=== PATIENT | male | born 1940 | race Caucasian/White ===

== ENCOUNTER 2017-01-28 07:50 | Inpatient (IN) | payer OTHER ==
[~2017-01-28] VITALS: Ht 182.9 cm; Wt 105.5 kg
[~2017-01-28 07:50] MED LIST: ACCUPRIL20 MG PO; ADULT LOW STREN81 M2 PO; ASPIRIN E.C.81 M1 PO; ASPIRIN81 M2 PO; AZITHROMYCIN500 MG PO; CENTRAL VITE T1 EACH PO; CENTRUM SILVER1 EAC3 PO; CHOLESTYRAMINE P4 GM PO; DICLOFENAC SODI75 MG PO; FENOFIBRATE160 M1 PO; FLEXERIL10 MG PO; FLORASTOR250 MG PO; GABAPENTIN300 MG PO; GARLIC OIL1000 MG PO; GARLIC1000 MG PO; Garlic PO; IRON325 M1 PO; LISINOPRIL20 MG PO; LOPRESSOR12.5 MG PO; LOPRESSOR25 MG PO; Lopid PO; METRONIDAZOLE500 MG PO; MOTRIN400 MG PO; NIASPAN,SLO-NI500 MG PO; OMEGA 3-6-91200 MG PO; PERCOCET 5/31 TABLET PO; PROBIOTIC1 EAC1 PO; Theragran-M,Centrum, PO; Tylenol Regular Stre PO; ZANTAC150 MG PO; Zantac PO
[2017-01-28 12:30] VITALS: BP 147/79
[2017-01-28 19:52] VITALS: BP 131/64
[2017-01-29 00:07] VITALS: BP 128/73
[2017-01-29 04:16] VITALS: BP 127/69
[2017-01-29 05:55] LABS: HEMATOCRIT 46.9 % (38.0-50.0); MCV 90.9 FL (86-99)
[2017-01-29 06:14] LABS: ANION GAP 9 MEQ/L (2-14); CHLORIDE 105 MEQ/L (99-109); GFR ESTIMATE (CALCULATED) > 59 mL/min/; GLUCOSE 150 mg/dL (70-99); SAMPLE HEMOLYSIS CHECK 0; SAMPLE ICTERIC CHECK 0; SAMPLE LIPEMIA CHECK 0; SODIUM 138 MEQ/L (136-147); UREA NITROGEN (BUN) 14 mg/dL (9-23)
[2017-01-29 07:50] VITALS: BP 133/67
[2017-01-29 15:21] VITALS: BP 121/64
[2017-01-29 23:34] VITALS: BP 129/74
[2017-01-30 06:29] LABS: HEMATOCRIT 41.8 % (38.0-50.0); MCV 93.3 FL (86-99)
[2017-01-30 08:28] VITALS: BP 128/63
[2017-01-30] MEDS ORDERED: CELECOXIB200 MG PO (10:18)
[2017-01-30] MEDS ORDERED: OXYCONTIN10 MG PO (10:18)
[2017-01-30] MEDS ORDERED: XARELTO10 MG PO (10:18)
[2017-01-30] MEDS ORDERED: OXYCODONE HCL5 MG PO (10:18)
== END 2017-01-30 15:30 | disposition home or self-care (01) | DRG 470 ==
LOC: 2SOUTH 07:50 → 3EAST 19:13
PROVIDERS: Orthopaedic Surgery
PROC: 0SR Lower Joints, Replacement (ICD-10-PCS; principal; 2017-01-28)
DX: M16.11 Unilateral primary osteoarthritis, right hip (principal); I10 Essential (primary) hypertension; Z79.82 Long term (current) use of aspirin; Z79.01 Long term (current) use of anticoagulants
CPT/HCPCS: 73501; 80048; 85014; 85018; J0131; J0690; J2250; J3010; J7050

== ENCOUNTER 2017-05-06 05:11 | Inpatient (IN) | payer OTHER ==
[2017-05-06] VITALS (7 sets, daily range): BP systolic 115–134; BP diastolic 65–77
[~2017-05-06] VITALS: Ht 182.9 cm; Wt 109.7 kg
[~2017-05-06 05:11] MED LIST changes: +CELECOXIB200 MG PO; +FERROUS SULFAT325 MG PO; +GARLIC100 MG PO; +MULTIPLE VITAM1 EACH PO; +NEURONTIN300 MG PO; +OXAYDO5 MG PO; +OXYCODONE HCL5 MG PO; +OXYCONTIN10 MG PO; +XARELTO10 MG PO
[2017-05-07 00:30] VITALS: BP 106/71
[2017-05-07 04:00] VITALS: BP 131/77
[2017-05-07 06:11] LABS: HEMATOCRIT 47.4 % (38.0-50.0); MCV 91.9 FL (86-99)
[2017-05-07 07:57] VITALS: BP 168/83
[2017-05-07] MEDS ORDERED: BENADRYL25 MG PO (10:12)
[2017-05-07] MEDS ORDERED: TYLENOL REGULA325 MG PO (10:14)
[2017-05-07] MEDS ORDERED: BISACODYL5 MG PO (10:15)
[2017-05-07] MEDS ORDERED: ELIQUIS2.5 MG PO (10:16)
[2017-05-07] MEDS ORDERED: OXYCODONE HCL5 MG PO (10:16)
[2017-05-07] MEDS ORDERED: CELECOXIB200 MG PO (10:16)
[2017-05-07 11:47] VITALS: BP 149/73
== END 2017-05-07 13:28 | DRG 470 ==
LOC: 2SOUTH 05:11 → 3WEST 10:37 → 2SOUTH 14:52 → 3WEST 05-07 13:28
PROVIDERS: Orthopaedic Surgery
PROC: 0SRB04A Replacement of Left Hip Joint with Ceramic on Polyethylene Synthetic Substitute, Uncemented, Open Approach (ICD-10-PCS; principal; 2017-05-06)
DX: M16.12 Unilateral primary osteoarthritis, left hip (principal); Z96.641 Presence of right artificial hip joint; M25.552 Pain in left hip; I10 Essential (primary) hypertension; Z79.82 Long term (current) use of aspirin; E66.9 Obesity, unspecified; Z68.32 Body mass index [BMI] 32.0-32.9, adult
CPT/HCPCS: 73501; 85014; 85018; C1713; J0131; J0690; J1100; J1885; J2250; J2405; J3010; J7050; J7120; S0020